=== PATIENT | female | born 1975 | race Asian ===

== ENCOUNTER 2023-04-18 07:09 | Day surgery (SDC) | payer BC ==
[2023-04-16 10:15] LABS: BILIRUBIN,URINE NEGATIVE (NEGATIVE); BLOOD, URINE NEGATIVE (NEGATIVE); CLARITY/URINE CLEAR (CLEAR); COLOR,URINE YELLOW (YELLOW); GLUCOSE,URINE NEGATIVE (NEGATIVE); KETONES,URINE NEGATIVE (NEGATIVE); LEUKOCYTE ESTERASE ,URINE NEGATIVE (NEGATIVE); NITRITE, URINE NEGATIVE (NEGATIVE); PROTEIN URINE NEGATIVE (NEGATIVE); UROBILINOGEN,URINE 0.2 (0.2-1.0)
[2023-04-16 10:22] LABS: BASOPHILS % (AUTO) 1.1 % (0.0-2.0)
[2023-04-16 10:42] LABS: BASOPHILS # (AUTO) 0.1 K/uL (0.0-0.2); EOSINOPHILS # (AUTO) 0.2 K/uL (0.0-0.4); EOSINOPHILS % (AUTO) 4.3 % (0.0-4.0); HEMOGLOBIN 10.8 g/dL (12.0-16.0); LYMPHOCYTES # (AUTO) 1.3 K/uL (1.0-5.5); MEAN CORPUSCULAR HEMOGLOBIN 32 pg (27-31); MEAN CORPUSCULAR HGB CONC 35 % (32-36); MEAN CORPUSCULAR VOLUME 93 fL (79.0-98.0); MONOCYTES # (AUTO) 0.3 K/uL (0.0-1.0); MONOCYTES % (AUTO) 5.1 % (1.7-9.3); NEUTROPHILS # (AUTO) 3.2 K/uL (1.8-7.7); NEUTROPHILS % (AUTO) 63.5 % (40.0-70.0); PLATELET COUNT (AUTO) 354 K/uL (130-430); RED BLOOD CELL COUNT(AUTO) 3.33 MIL/uL (4.2-6.2); RED CELL DISTRIBUTION WIDTH 13.8 % (9.0-15.0)
[~2023-04-18] VITALS: Ht 160 cm; Wt 72.2 kg
[~2023-04-18 07:09] MED LIST: CEFAZOLIN SOD 2 GM in D5W 50 ML IV ONE
[2023-04-18] MEDS ORDERED: fentaNYL CITRATE/PF 100 MCG/2 ML AMP ONE (09:44)
[2023-04-18] MEDS ORDERED: ACETAMINOPHEN I.V. 1000 MG 100 ML IV ONE (09:45)
[2023-04-18] MEDS ORDERED: MIDAZOLAM HCL 2 MG/2 ML VIAL (VERSED) ONE (09:45)
[2023-04-18] MEDS ORDERED: NS IRRIG SOLN 5000 ML IR ONE (09:46)
[2023-04-18] MEDS ORDERED: PROPOFOL 200MG/ 20ML VIAL (DIPRIVAN) IV ONE (09:46)
[2023-04-18] MEDS ORDERED: DEXAMETHASONE SOD PHOSPHATE 4 MG/ML VIAL ONE (09:46)
[2023-04-18] MEDS ORDERED: NS IRRIG SOLN 1000 ML IR ONE (09:46)
[2023-04-18] MEDS ORDERED: SEVOFLURANE 15 MIN GAS INH ONE (09:46)
[2023-04-18] MEDS ORDERED: KETOROLAC TROMETHAMINE 30 MG VIAL ONE (09:46)
[2023-04-18] MEDS ORDERED: LR 1,000 ML IV.SOLN IV ONE (09:46)
[2023-04-18] MEDS ORDERED: ONDANSETRON HCL 4 MG/2 ML VIAL ONE (09:46)
[2023-04-18 10:07] VITALS: O2SAT 98
[2023-04-18] MEDS ORDERED: HYDROmorphone 1 MG/ML INJ. CARTRIDGE IVP PRN (10:15)
[2023-04-18] MEDS ORDERED: ONDANSETRON HCL 4 MG/2 ML VIAL IVP PRN ×2 (10:15→10:30)
[2023-04-18] MEDS ORDERED: fentaNYL CITRATE/PF 100 MCG/2 ML AMP IVP PRN ×2 (10:15)
[2023-04-18] MEDS ORDERED: LR 1,000 ML IV ONE (10:15)
[2023-04-18] MEDS ORDERED: OXYCODONE/ACETAMINOPHEN 5-325 TABLET PO PRN ×2 (10:30)
[2023-04-18] MEDS ORDERED: HYDROcodone/ACETAMIN 5-325 MG TAB (NORCO/ VICODIN) PO PRN (10:30)
[2023-04-18 13:49] VITALS: BP_SYST 127; PULSE 64; RESP 18
== END 2023-04-18 13:05 | disposition home or self-care (01) ==
LOC: SDS 07:09 → SMU 07:13 → SDS 13:05
PROVIDERS: ATTEND Specialist
DX: N93.8 Other specified abnormal uterine and vaginal bleeding (principal); N92.1 Excessive and frequent menstruation with irregular cycle; D25.0 Submucous leiomyoma of uterus
CPT/HCPCS: 81003; 81001; 84702; 85025; 87081; 36415; 93005; 71046; 58561; 74018; 88305; 58300; J0690; J1100; J1885; J3465; J2405; J2704; J3010; J7060; J7120; C1819; J0131